=== PATIENT | female | born 1945 | race Caucasian/White ===

== ENCOUNTER 2018-03-15 14:52 | Inpatient (IN) | payer MEDICARE ==
[~2018-03-15] VITALS: Ht 144.8 cm; Wt 55.3 kg
[~2018-03-15 14:52] MED LIST: ASPI-621 PO; CARV12.52 PO; CLOP75TA PO; CYCL-259 PO; ENAL10TA PO; FOLI20CA PO; HYDR-3237 PO; HYDR-3240 PO; PRAV80TA2 PO; SENN1TAB67 PO
[2018-03-15] MEDS ORDERED: SODIUM CHLORIDE FLUSH 10ML SYR IVF ONE (15:30)
[2018-03-15 15:56] LABS: BASOPHILS # (AUTO) 0.04 x10^3/uL (0-0.1); BASOPHILS % (AUTO) 1 % (0-1); EOSINOPHILS # (AUTO) 0.11 x10^3/uL (0-0.4); EOSINOPHILS % (AUTO) 1 % (1-7); LYMPHOCYTES % (AUTO) 16 % (22-44); MD NO; MEAN CORPUSCULAR HEMOGLOBIN 29.9 pg (27.0-34.8); MEAN CORPUSCULAR HGB CONC 32.8 g/dL (32.4-35.8); MEAN PLATELET VOLUME 8.5 fL (7.4-10.4); MONOCYTES # (AUTO) 0.43 x10^3/uL (0.2-0.8); MONOCYTES % (AUTO) 5 % (2-9); NEUTROPHILS # (AUTO) 6.69 x10^3/uL (1.8-6.8); NEUTROPHILS % (AUTO) 77 % (42-75); PLATELET COUNT 320 x10^3/uL (130-400); RED BLOOD COUNT 4.15 x10^6/uL (3.82-5.3); RED CELL DISTRIBUTION WIDTH 13.9 % (9.6-15.2)
[2018-03-15 16:03] LABS: INTERNATIONAL NORMALIZED RATIO 1.03 (0.93-1.1); PROTHROMBIN TIME 10.6 Seconds (9.6-11.5)
[2018-03-15 16:05] LABS: ALANINE AMINOTRANSFERASE 17 U/L (12-78); ALBUMIN 3.4 g/dL (3.4-5.0); ANION GAP 7 mmol/L (5-15); CALCIUM 7.8 mg/dL (8.5-10.1); CHLORIDE 108 mmol/L (98-107); CREATININE 0.45 mg/dL (0.55-1.02)
[2018-03-15 16:09] LABS: ALKALINE PHOSPHATASE 95 U/L (45-117); BILIRUBIN,TOTAL 0.4 mg/dL (0.2-1.0); TOTAL PROTEIN 7.5 g/dL (6.4-8.2); TROPONIN I 0.022 ng/mL (0.000-0.045)
[2018-03-15] MEDS ORDERED: ASPI-496 PO (16:10)
[2018-03-15] MEDS ORDERED: REPATHA PO (16:15)
[2018-03-15 18:35] VITALS: BP 170/94
[2018-03-15] MEDS ORDERED: ONDANSETRON ODT 4 MG ONE (19:13)
[2018-03-15] MEDS ORDERED: ONDANSETRON ODT 4 MG PO ONE (19:30)
[2018-03-15 20:00] VITALS: BP 150/82
[2018-03-15 22:40] LABS: TROPONIN I 0.019 ng/mL (0.000-0.045)
[2018-03-16 01:30] VITALS: BP 150/82
[2018-03-16] MEDS ORDERED: HYDROcodone/APAP 5/325 TABLET PO PRN (02:30)
[2018-03-16] MEDS: ONDANSETRON 2MG/ML, 2ML IVPush PRN ×2 (02:53→07:25)
[2018-03-16] MEDS: ACETAMINOPHEN 325 MG TABLET PO PRN ×2 (03:13→13:44)
[2018-03-16 04:56] LABS: CHOL/HDL RATIO 3.6
[2018-03-16 04:57] LABS: TROPONIN I 0.019 ng/mL (0.000-0.045)
[2018-03-16 07:11] VITALS: BP 147/92
[2018-03-16] MEDS: ASPIRIN 81 MG TABLET CHEW PO/NG SCH (09:39)
[2018-03-16 14:00] VITALS: BP 144/96
[2018-03-16 18:51] VITALS: BP 143/80
[2018-03-17 01:32] VITALS: BP 122/79
[2018-03-17 07:34] VITALS: BP 144/96
[2018-03-17] MEDS: ASPIRIN 81 MG TABLET CHEW PO/NG SCH (09:03)
== END 2018-03-17 12:21 | disposition home or self-care (01) | DRG 74 ==
LOC: ED 16:14 → EDIP 17:27 → 5SO 18:19 → DCLOUNGE 03-17 11:59
PROVIDERS: ADMIT Hospitalist; ATTEND Hospitalist
DX: G90.8 Other disorders of autonomic nervous system (principal); G83.11 Monoplegia of lower limb affecting right dominant side; I16.0 Hypertensive urgency; I25.10 Atherosclerotic heart disease of native coronary artery without angina pectoris; I10 Essential (primary) hypertension; E78.5 Hyperlipidemia, unspecified; Z82.61 Family history of arthritis; Z82.49 Family history of ischemic heart disease and other diseases of the circulatory system; Z95.5 Presence of coronary angioplasty implant and graft; Z95.1 Presence of aortocoronary bypass graft; T40.4X5A Adverse effect of other synthetic narcotics, initial encounter; T42.4X5A Adverse effect of benzodiazepines, initial encounter; Y92.89 Other specified places as the place of occurrence of the external cause; M19.90 Unspecified osteoarthritis, unspecified site; Z79.82 Long term (current) use of aspirin; Z79.899 Other long term (current) drug therapy; M20.40 Other hammer toe(s) (acquired), unspecified foot; M21.619 Bunion of unspecified foot; Z91.041 Radiographic dye allergy status; Z91.013 Allergy to seafood
CPT/HCPCS: 36415; 70450; 70551; 71045; 80053; 80061; 82962; 84484; 85025; 85610; 85730; 93005; 93880; 99285; G0378; J2405; Q0162; 92523-GN